=== PATIENT | female | born 1955 | race Caucasian/White ===

== ENCOUNTER → 2017-09-28 | Outpatient (CLI) | payer BC ==
--- NOTE | 2017-09-28 10:17 | DIAGNOSTIC IMAGING REPORT ---
RIGHT KNEE 4 VIEWS; LEFT KNEE 4 VIEWS CLINICAL HISTORY: Bilateral knee pain. FINDINGS: An AP standing view of both knees, a tunnel view of both knees, a sunrise view of both knees, with lateral views of the right and left knee are obtained. Comparison is made to study dated 10/17/2015. The skeletal structures are osteopenic. No fracture is seen. Right knee: There is moderate tricompartmental degenerative joint space narrowing of the right knee, greatest in the medial and patellofemoral compartments. There are small marginal osteophytes and a tiny superior patellar enthesophyte. There is no evidence of osteochondral lesion on the tunnel image. Mild degenerative sclerosis is noted along the medial tibial plateau. There is no joint effusion. The overlying soft tissues are within normal limits. There is mild atherosclerotic calcification of the popliteal artery. Left knee: There is mild to moderate tricompartmental degenerative joint space narrowing, greatest at the patellofemoral articulation. There are tiny medial marginal osteophytes and a small superior patellar enthesophyte. There is no evidence of osteochondral defect on the tunnel image. No joint effusion is identified. The overlying soft tissues are normal in appearance. There is mild atherosclerotic calcification of the popliteal artery. IMPRESSION: 1. No acute bony abnormality is seen in either knee. 2. Osteopenia and degenerative change as above. This is similar in appearance to the 10/17/2015 examination. Electronically signed by: Nils Avina M.D. 09/28/2017 10:16 AM Dictated Date/Time: 09/28/2017 10:12 AM
== END | disposition home or self-care (01) ==
LOC: C.RDSM 09:19
PROVIDERS: ATTEND Family Medicine
DX: M25.562 Pain in left knee (principal); M25.561 Pain in right knee